=== PATIENT | male | born 1950 | race Caucasian/White ===

== ENCOUNTER → 2017-08-03 | Outpatient (CLI) | payer MEDICARE, BC | LOC: ROC 13:27 | PROVIDERS: ATTEND Radiology Radiation Oncology | DX: Z08 Encounter for follow-up examination after completed treatment for malignant neoplasm (principal); C61 Malignant neoplasm of prostate; I12.0 Hypertensive chronic kidney disease with stage 5 chronic kidney disease or end stage renal disease; N18.6 End stage renal disease; B18.2 Chronic viral hepatitis C; N39.0 Urinary tract infection, site not specified; N41.1 Chronic prostatitis; N52.9 Male erectile dysfunction, unspecified; Z85.46 Personal history of malignant neoplasm of prostate; Z90.79 Acquired absence of other genital organ(s); Z99.2 Dependence on renal dialysis | CPT/HCPCS: 96402; 99215; J9217; G0463 ==

== ENCOUNTER → 2017-08-03 | Outpatient (CLI) | payer MEDICARE, BC | END | disposition home or self-care (01) | LOC: LAB 15:34 | PROVIDERS: ATTEND Radiology Radiation Oncology | DX: Z08 Encounter for follow-up examination after completed treatment for malignant neoplasm (principal); C61 Malignant neoplasm of prostate; Z85.46 Personal history of malignant neoplasm of prostate | CPT/HCPCS: 36415; 84153 ==

== ENCOUNTER → 2017-09-12 | Outpatient (CLI) | payer MEDICARE, BC ==
[~2017-09-12] MED LIST: FENTANYL PF 100 MCG/2ML IVPush ONE; LEUPROLIDE 22.5MG SYRINGE KIT ONE; LIDOCAINE 1%, 10ML SQ ONE; LIDOCAINE 1%, 20ML SQ ONE; MIDAZOLAM 1 MG/ML, 5ML IVPush ONE
== END ==
LOC: ROC 08-01 12:04
PROVIDERS: ATTEND Radiology Radiation Oncology
DX: Z51.0 Encounter for antineoplastic radiation therapy (principal); C61 Malignant neoplasm of prostate
CPT/HCPCS: 55876; 76942; 77332; 99156; A4648; J2250; J3010; J3490; J9217

== ENCOUNTER → 2017-09-18 | Outpatient (CLI) | payer MEDICARE, BC | END | disposition home or self-care (01) | LOC: CFH 08:59 | PROVIDERS: ATTEND Radiology Radiation Oncology | DX: C61 Malignant neoplasm of prostate (principal); I10 Essential (primary) hypertension | CPT/HCPCS: 72195 ==

== ENCOUNTER → 2017-11-06 | Outpatient (CLI) | payer MEDICARE, BC ==
[~2017-11-06] MED LIST changes: -FENTANYL PF 100 MCG/2ML IVPush ONE; -LIDOCAINE 1%, 10ML SQ ONE; -LIDOCAINE 1%, 20ML SQ ONE; -MIDAZOLAM 1 MG/ML, 5ML IVPush ONE
== END | disposition home or self-care (01) ==
LOC: ROC 07:13
PROVIDERS: ATTEND Radiology Radiation Oncology
DX: C61 Malignant neoplasm of prostate (principal); I10 Essential (primary) hypertension
CPT/HCPCS: 96402; 99212; J9217; G0463

== ENCOUNTER → 2018-02-05 | Outpatient (CLI) | payer MEDICARE, BC | END | disposition home or self-care (01) | LOC: ROC 08:53 | PROVIDERS: ATTEND Radiology Radiation Oncology | DX: Z08 Encounter for follow-up examination after completed treatment for malignant neoplasm (principal); C61 Malignant neoplasm of prostate | CPT/HCPCS: G0463 ==

== ENCOUNTER 2018-08-03 09:59 | Outpatient (CLI) | payer MEDICARE, BC | END 2018-08-03 23:59 | disposition home or self-care (01) | LOC: ROC 09:59 | PROVIDERS: ATTEND Radiology Radiation Oncology | DX: C61 Malignant neoplasm of prostate (principal); Z87.438 Personal history of other diseases of male genital organs; Z79.899 Other long term (current) drug therapy | CPT/HCPCS: G0463 ==